=== PATIENT | female | born 1965 | race Two or more races ===

== ENCOUNTER 2020-08-28 08:48 | Outpatient (CLI) | payer OTHER | END 2020-08-28 08:57 | disposition home or self-care (01) | LOC: MRI 08:48 | PROVIDERS: ATTEND Orthopaedic Surgery | DX: M17.12 Unilateral primary osteoarthritis, left knee (principal); M25.562 Pain in left knee; M71.22 Synovial cyst of popliteal space [Baker], left knee | CPT/HCPCS: 73721 ==

== ENCOUNTER 2020-11-01 10:33 | Outpatient (CLI) | payer OTHER | END 2020-11-01 10:50 | disposition home or self-care (01) | LOC: SONOGRAMA 10:33 | PROVIDERS: ATTEND Specialist | DX: N94.3 Premenstrual tension syndrome (principal) ==

== ENCOUNTER 2020-11-14 12:12 | Outpatient (CLI) | payer OTHER | END 2020-11-14 12:30 | disposition home or self-care (01) | LOC: MAMO-SONO 12:12 | PROVIDERS: ATTEND Specialist | DX: Z12.31 Encounter for screening mammogram for malignant neoplasm of breast (principal); N63 Unspecified lump in breast ==

== ENCOUNTER 2021-02-23 08:50 | Outpatient (CLI) | payer OTHER | END 2021-02-23 09:05 | disposition home or self-care (01) | LOC: RAD 08:50 | PROVIDERS: ATTEND Surgery | DX: I10 Essential (primary) hypertension (principal) ==

== ENCOUNTER 2021-03-08 11:21 | Outpatient (CLI) | payer OTHER | END 2021-03-08 11:28 | disposition home or self-care (01) | LOC: EKG 11:21 | PROVIDERS: ATTEND Surgery | DX: I10 Essential (primary) hypertension (principal) ==

== ENCOUNTER 2021-03-09 06:05 | Day surgery (SDC) | payer OTHER | END 2021-03-09 18:50 | disposition home or self-care (01) | LOC: CIR.AMB 06:05 | PROVIDERS: ATTEND Surgery | DX: D05.11 Intraductal carcinoma in situ of right breast (principal); D24.2 Benign neoplasm of left breast; N62 Hypertrophy of breast; Z90.13 Acquired absence of bilateral breasts and nipples; Z20.822 Contact with and (suspected) exposure to COVID-19 | CPT/HCPCS: 19357; 19303; 38525; 38792; 15277; 15278 ×3; C1789 ==

== ENCOUNTER 2021-04-10 10:15 | Inpatient (IN) | payer OTHER ==
[~2021-04-10] VITALS: Ht 160 cm; Wt 74.8 kg
[2021-04-10] MEDS ORDERED: ANASTROZOLE1 MG PO (10:23)
== END 2021-04-13 14:36 | disposition home or self-care (01) | DRG 902 ==
LOC: ER 10:15 → SURG 11:14 → SEC-K 11:14 → O/R 16:56 → SURG 17:47
PROVIDERS: ADMIT Plastic Surgery; ATTEND Plastic Surgery
PROC: 0HPU0JZ Removal of Synthetic Substitute from Left Breast, Open Approach (ICD-10-PCS; 2021-04-10)
PROC: 0JB60ZZ Excision of Chest Subcutaneous Tissue and Fascia, Open Approach (ICD-10-PCS; principal; 2021-04-10 14:15)
DX: T85.79XA Infection and inflammatory reaction due to other internal prosthetic devices, implants and grafts, initial encounter (principal); T81.31XA Disruption of external operation (surgical) wound, not elsewhere classified, initial encounter; Y83.4 Other reconstructive surgery as the cause of abnormal reaction of the patient, or of later complication, without mention of misadventure at the time of the procedure; N61.1 Abscess of the breast and nipple

== ENCOUNTER 2021-06-08 08:30 | Day surgery (SDC) | payer OTHER ==
[~2021-06-08 08:30] MED LIST: ANASTROZOLE1 MG PO
[2021-06-08] MEDS ORDERED: ULTRACET PO (11:56)
== END 2021-06-08 15:05 | disposition home or self-care (01) ==
LOC: CIR.AMB 08:30
PROVIDERS: ATTEND Surgery
DX: C50.111 Malignant neoplasm of central portion of right female breast (principal); Z20.822 Contact with and (suspected) exposure to COVID-19
CPT/HCPCS: 36561; C1751

== ENCOUNTER 2022-02-06 08:16 | Outpatient (CLI) | payer OTHER ==
[~2022-02-06 08:16] MED LIST changes: +ULTRACET PO
== END 2022-02-06 08:18 | disposition home or self-care (01) ==
LOC: SONOGRAMA 08:16
PROVIDERS: ATTEND Specialist
DX: R10.2 Pelvic and perineal pain (principal)

== ENCOUNTER 2022-03-08 06:03 | Inpatient (IN) | payer OTHER ==
[~2022-03-08] VITALS: Ht 157.5 cm; Wt 74.8 kg
== END 2022-03-09 14:09 | disposition home or self-care (01) | DRG 983 ==
LOC: CIR.AMB 06:03 → OB/GYN 17:12
PROVIDERS: ADMIT Surgery; ATTEND Surgery
PROC: 05PY03Z Removal of Infusion Device from Upper Vein, Open Approach (ICD-10-PCS; principal; 2022-03-08 16:00)
DX: C50.911 Malignant neoplasm of unspecified site of right female breast (principal); Z20.822 Contact with and (suspected) exposure to COVID-19

== ENCOUNTER 2022-05-15 08:23 | Outpatient (CLI) | payer OTHER | END 2022-05-15 08:34 | disposition home or self-care (01) | LOC: SONOGRAMA 08:23 | PROVIDERS: ATTEND Surgery | DX: N60.11 Diffuse cystic mastopathy of right breast (principal); N60.12 Diffuse cystic mastopathy of left breast; C50.411 Malignant neoplasm of upper-outer quadrant of right female breast ==

== ENCOUNTER 2022-08-28 13:13 | Outpatient (CLI) | payer OTHER | END 2022-08-28 13:15 | disposition home or self-care (01) | LOC: NUCLEAR 13:13 | PROVIDERS: ATTEND Internal Medicine | DX: M81.8 Other osteoporosis without current pathological fracture (principal) ==

== ENCOUNTER 2022-10-18 06:05 | Day surgery (SDC) | payer OTHER ==
[~2022-10-18] VITALS: Ht 157.5 cm; Wt 77.1 kg
== END 2022-10-18 11:35 | disposition home or self-care (01) ==
LOC: CIR.AMB 06:05
PROVIDERS: ATTEND Plastic Surgery
DX: Z90.11 Acquired absence of right breast and nipple (principal); N64.89 Other specified disorders of breast; C50.919 Malignant neoplasm of unspecified site of unspecified female breast; Z88.0 Allergy status to penicillin; Z20.822 Contact with and (suspected) exposure to COVID-19

== ENCOUNTER 2023-04-23 08:24 | Outpatient (CLI) | payer OTHER | END 2023-04-23 08:50 | disposition home or self-care (01) | LOC: MAMO-SONO 08:24 | PROVIDERS: ATTEND Surgery | DX: C50.411 Malignant neoplasm of upper-outer quadrant of right female breast (principal); N60.11 Diffuse cystic mastopathy of right breast; N60.12 Diffuse cystic mastopathy of left breast ==

== ENCOUNTER 2024-06-09 12:02 | Outpatient (CLI) | payer OTHER | END 2024-06-09 12:07 | disposition home or self-care (01) | LOC: SONOGRAMA 12:02 | PROVIDERS: ATTEND Surgery | DX: C50.411 Malignant neoplasm of upper-outer quadrant of right female breast (principal); N60.11 Diffuse cystic mastopathy of right breast; N60.12 Diffuse cystic mastopathy of left breast ==